=== PATIENT | male | born 1970 | race Caucasian/White ===

== ENCOUNTER 2021-03-10 15:24 | Emergency (ER) | payer BC, OTHER, SELFPAY ==
--- NOTE | ~2021-03-10 | XR_ITS ---
EXAMINATION: XR chest 2V DATE: 03/10/2021 15:56 INDICATION: Cough and congestion. TECHNIQUE: Frontal and lateral views of the chest were obtained. COMPARISON: None. FINDINGS: There is mild scarring at right lung apex. No pleural effusion or pneumothorax. The heart s ize is normal. IMPRESSION: 1. Mild scarring at right lung apex. Reviewed, dictated and finalized at location B. [employer]
[2021-03-10 15:40] VITALS: BP 174/86; PULSE 88; RESP 20; TEMP 36.8; O2SAT 98
--- NOTE | 2021-03-10 15:43 | ED.URI ---
HPI - URI/Sore Throat General Chief Complaint: Upper Respiratory Infection Stated Complaint: Congestion,Cough Time Seen by Provider: 03/10/21 15:43 Source: patient Mode of arrival: ambulatory Limitations: no limitations History of Present Illness HPI Narrative: Jose Montilla is a 50 yo male with a PMH of HTN who comes with 2 weeks of head and chest congestion. Friend of his tested positive for COVID today. He is here for COVID test and will get a PCR. Patient got COVID-vaccine Related Data Home Medications Medication Instructions Recorded Confirmed amlodipine 5 mg PO DAILY 03/10/21 03/10/21 sildenafil 100 mg PO PRN PRN 03/10/21 03/10/21 Allergies Allergy/AdvReac Type Severity Reaction Status Date / Time No Known Allergies Allergy Verified 03/10/21 15:40 Review of Systems Review of Systems: CONSTITUTIONAL: Denies fever, chills, sweats. EYES: Denies visual changes, redness, discharge. ENT: Denies rhinorrhea, congestion x2 weeks, sore throat, otalgia. CARDIOVASCULAR: Denies chest pain, palpitations, edema. RESPIRATORY: Denies dyspnea, wheezing, cough x2 weeks GASTROINTESTINAL: Denies abdominal pain, nausea, vomiting, diarrhea. GENITOURINARY: Denies dysuria, hematuria, abnormal discharge SKIN: Denies rash or itching. NEUROLOGIC: Denies numbness, or focal weakness. PSYCHIATRIC: Denies anxiety or depression. [facility] [place] Past Medical History Medical History (Updated 03/10/21 @ 19:36 by Karine Quevedo CNP) Hypertension Family History Family History Other Hypertension Social History Social History Smoking status: Never smoker Alcohol intake: current Comments At time of signature, I agree with nursing past medical, surgical, social and family history. There is no relevant family history pertinent to the presenting complaint. Exam Narrative: GENERAL: This is a well-nourished, well-developed patient, in mild distress. HEAD: normocephalic, atraumatic. EYES: Sclera clear/white. Vision is grossly intact. EARS: External ears normal, auditory canals clear and without drainage, TMs normal without perforation. Hearing grossly intact. NOSE: External nose normal without nasal discharge, nares without redness, no rhinorrhea. THROAT: Mucous membranes moist, posterior pharynx mild erythema NECK: Neck supple, non-tender CARDIOVASCULAR: Regular rate and rhythm without murmurs, gallops, or rubs. RESPIRATORY: Diminished to auscultation. Breath sounds equal bilaterally. Bilateral fine wheezes, rales, or rhonchi. GASTROINTESTINAL: Abdomen soft, non-tender, SKIN: warm, intact with no suspicious lesions or rash, good texture and turgor. NEURO: awake, alert, and oriented to person, place and time. There were no obvious focal neurologic abnormalities. Steady gait EXTREMITIES: Normal range of motion. BACK: Nontender without deformity Course Course Emergency Course: Patient comes with 2 weeks of cough and congestion and today her friend was diagnosed with COVID Chest x-ray showed scarring in the right area of lung but no active cardiopulmonary disease Treated for bronchitis as patient has fine wheezing and ongoing coughing Level of Care: Express Care Visit Vital Signs Vital signs: Vital Signs Temperature 98.3 F 03/10/21 15:40 Pulse Rate 88 03/10/21 15:40 Respiratory Rate 20 03/10/21 15:40 Blood Pressure 174/86 H 03/10/21 15:40 Pulse Oximetry 98 03/10/21 15:40 Temperature 98.3 F 03/10/21 15:45 Pulse Rate 88 03/10/21 15:45 Respiratory Rate 20 03/10/21 15:45 Blood Pressure 174/86 H 03/10/21 15:45 Pulse Oximetry 98 03/10/21 15:45 MDM - URI/Sore Throat Differential Diagnosis Differential diagnosis: Likely upper respiratory infection, sinusitis, viral infection, bronchitis, influenza, pharyngitis and other Lab Data Labs: Lab Results 03/10/21 Range/Units 15:45 SARS-
[2021-03-10 15:45] VITALS: BP 174/86; PULSE 88; RESP 20; TEMP 36.8; O2SAT 98
[2021-03-11 23:20] LABS: SARS-CoV-2 RNA PCR Negative
== END 2021-03-10 16:29 | disposition home or self-care (01) ==
PROVIDERS: Emergency Provider Nurse Practitioner
DX: J40 Bronchitis, not specified as acute or chronic (principal); Z20.822 Contact with and (suspected) exposure to COVID-19; I10 Essential (primary) hypertension
CPT/HCPCS: 71046; 99213; C9803; G0463; U0003; U0005